=== PATIENT | female | born 1965 | race Caucasian/White ===

== ENCOUNTER 2016-04-11 15:22 | Emergency (ER) | payer OTHER ==
[2016-04-11 16:11] VITALS: BP 127/83
[2016-04-11] MEDS ORDERED: Ketorolac INJ* 60 MG/2 ML VIAL IM ONE (16:25)
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
--- NOTE | 2016-04-11 16:38 | RAD ---
INDICATION: Right wrist injury COMPARISON: None TECHNIQUE: AP, lateral, and oblique views were obtained. FINDINGS: There is no acute fracture or dislocation. There is soft tissue swelling. IMPRESSION: NO ACUTE FRACTURE.
== END 2016-04-11 17:03 | disposition home or self-care (01) ==
LOC: UCCORT 15:22
DX: S60.211A Contusion of right wrist, initial encounter (principal); S63.502A Unspecified sprain of left wrist, initial encounter; W19.XXXA Unspecified fall, initial encounter; Y93.89 Activity, other specified; Y92.159 Unspecified place in reform school as the place of occurrence of the external cause; Y99.0 Civilian activity done for income or pay; Z88.0 Allergy status to penicillin
CPT/HCPCS: 96372; 99213; G0463; J1885

== ENCOUNTER 2017-04-25 01:13 | Emergency (ER) | payer SELFPAY ==
[2017-04-25 03:32] LABS: ABS Basophils 0.1 10^3/ul (0-0.2); ABS Eosinophils 0.1 10^3/ul (0-0.6); ABS Lymphocytes 2.2 10^3/ul (1.0-4.8); ABS Monocytes 0.3 10^3/ul (0-0.8); ABS Neutrophils 2.2 10^3/ul (1.5-7.7); ABS Nucleated RBC 0 10^3/ul; Eosinophil % 1.7 % (0-6); Hematocrit 43 % (35-47); Hemoglobin 14.8 g/dl (12.0-16.0); Lymphocyte % 45.5 % (25-47); Mean Corpuscular HGB Conc 34 g/dl (31-36); Mean Corpuscular Hemoglobin 31 pg (27-31); Mean Corpuscular Volume 91 fL (80-97); Mean Platelet Volume 7 um3 (7.4-10.4); Nucleated Red Blood Cells % 0.1; Platelet Count 303 10^3/ul (150-450); Red Blood Count 4.77 10^6/ul (4.0-5.4); Red Cell Distribution Width 14 % (10.5-15); White Blood Count 4.8 10^3/ul (3.5-10.8)
[2017-04-25 03:42] LABS: Urine Appearance Clear; Urine Blood 1+ (Negative); Urine Color Yellow; Urine Ketones Trace (Negative); Urine Protein Negative (Negative); Urine Urobilinogen Negative (Negative)
[2017-04-25 03:44] LABS: EGFR Non-African American 104.6 (>60)
[2017-04-25 04:54] VITALS: BP 128/67
--- NOTE | 2017-04-30 21:53 | ED ---
Bridgett Ace Rebecca, scribed for Keila Rowe MD on 04/25/17 at 0126 . Substance Abuse/Use - HPI Summary HPI Summary: Pt is a 51 y/o F BIBA who presents to ED due to suspected overdose. Pt reports that she was in [place], had gone to a bar where she had a few drinks, then went to the movie theater with her friend, though she does not remember going to the theater. Pt's sister states that after she was dropped off by her friend at about 2310, she "looked like she was really badly intoxicated" and began vomiting. Pt was complaining of pain, though could not describe a location. Son states that after the pt's sister left, the pt "kept screaming somebody was trying to hurt her," then she had 3 episodes of being unresponsive and without breathing. He successfully gave her CPR after each episode. Upon EMS arrival, she was administered 4 doses of nasal narcan which immediately improved sx. Sister states that this episode was not similar to when she has been previously intoxicated. Pt denies doing any drugs besides alcohol tonight. Pt reports taking 10 mg Oxycodone daily, though she had not taken it today. - History Of Current Complaint Chief Complaint: EDOverdose Stated Complaint: OVERDOSE Time Seen by Provider: 04/25/17 01:19 Hx Obtained From: Patient, Family/Catalytic Case Operator - Son, sister Hx Last Menstrual Period: She does not have them any more. 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 Factor(s): Nothing Alleviating Factor(s): Medication - Nasal Narcan Associated Signs And Symptoms: Vomiting - Allergies/Home Medications Allergies/Adverse Reactions: Allergies Allergy/AdvReac Type Severity Reaction Status Date / Time MS Latex [Latex] Allergy Severe Rash Verified 04/11/16 16:12 MS Penicillins [Penicillins] Allergy Severe Hives Verified 04/11/16 16:12 MS Bee Venom [Bee Venom] Allergy Anaphylatic Verified 04/11/16 16:12 Shock MS Iodine [Iodine] Allergy Hives/mouth Verified 04/11/16 16:12 feels numb seafood Allergy See Comment Uncoded 02/04/16 09:41 PMH/Surg Hx/FS Hx/Imm Hx Endocrine/Hematology History: Denies: Hx Anticoagulant Therapy, Hx Diabetes, Hx Thyroid Disease Cardiovascular History: Denies: Hx Congestive Heart Failure, Hx Deep Vein Thrombosis, Hx Hypertension , Hx Myocardial Infarction, Hx Pacemaker/ICD Respiratory History: Denies: Hx Asthma, Hx Chronic Obstructive Pulmonary Disease (COPD), Hx Lung Cancer, Hx Pneumonia, Hx Pulmonary Embolism GI History: Denies: Hx Gall Bladder Disease, Hx Gastrointestinal Bleed, Hx Ulcer, Hx Urosepsis History: Denies: Hx Kidney Stones, Hx Renal Disease Sensory History: Reports: Hx Contacts or Glasses - CONTACTS, GLASSES Denies: Hx Hearing Aid Opthamlomology History: Reports: Hx Contacts or Glasses - CONTACTS, GLASSES Neurological History: Denies: Hx Dementia, Hx Migraine, Hx Seizures, Hx Transient Ischemic Attacks (TIA) Psychiatric History: Reports: Hx Anxiety, Hx Depression Denies: Hx Panic Disorder, Hx Schizophrenia, Hx Bipolar Disorder - Surgical History Surgery Procedure, Year, and Place: complete hysterectomy, gallblader, hernia, t &a as child ,Rt wrist surgery FOR De Quervains release 10/08. 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 GENERAL: ~Patient is a well-developed and nourished female who is lying comfortable in the stretcher. Patient is not in any acute respiratory distress. HEAD AND FACE: No signs of trauma. No ecchymosis, hematomas or skull depressions. No sinus tenderness. EYES: PERRLA, EOMI x 2, No injected conjunctiva, no nystagmus. EARS: Hearing grossly intact. Ear canals and tympanic membranes are within normal limits. MOUTH: Oropharynx within normal limits. NECK: Supple, trachea is midline, no adenopathy, no JVD, no carotid bruit, no c- spine tenderness, neck with full ROM. CHEST: Symmetric, no tenderness at palpation LUNGS: Clear to auscultation bilaterally. No wheezing or crackles. CVS: Regular rate and rhythm, S1 and S2 present, no murmurs or gallops appreciated. ABDOMEN: Soft, non-tender. No signs of distention. No rebound no guarding, and no masses palpated. Bowel sounds are normal. EXTREMITIES: FROM in all major joints, no edema, no cyanosis or clubbing. NEURO: Alert and oriented x 3. No acute neurological deficits. Speech is normal and follows commands. SKIN: Dry and warm Triage Information Reviewed: Yes Vital Signs On Initial Exam: Initial Vitals Temp Pulse Resp BP Pulse Ox 98.7 F 101 18 129/78 100 04/25/17 01:17 04/25/17 01:17 04/25/17 01:17 04/25/17 01:17 04/25/17 01:17 Vital Signs Reviewed: Yes Diagnostics - Vital Signs Vital Signs Temp Pulse Resp BP Pulse Ox 04/25/17 01:17 98.7 F 101 18 129/78 100 - Laboratory Result Diagrams: 04/25/17 03:15 04/25/17 03:15 Lab Statement: Any lab studies that have been ordered have been reviewed, and results considered in the medical decision making process. - EKG 0359 Cardiac Rate: NL - 88 bpm EKG Rhythm: Sinus Rhythm EKG Interpretation: Normal axis. Normal interval. No ischemic changes. Re-Evaluation - Re-Evaluation First Eval Re-Evaluation Time: 04:30 Change: Improved Comment: Pt is feeling much better. Course/Dx - Course Assessment/Plan: Pt is a 51 y/o F BIBA who presents to ED due to suspected overdose. Pt reports that she was in [place], had gone to a bar where she had a few drinks, then went to the movie theater with her friend, though she does not remember going to the theater. Pt's sister states that after she was dropped off by her friend at about 2310, she "looked like she was really badly intoxicated" and began vomiting. Pt was complaining of pain, though could not describe a location. Son states that after the pt's sister left, the pt "kept screaming somebody was trying to hurt her," then she had 3 episodes of being unresponsive and without breathing. He successfully gave her CPR after each episode. Upon EMS arrival, she was administered 4 doses of nasal narcan which immediately improved sx. Sister states that this episode was not similar to when she has been previously intoxicated. Pt denies doing any drugs besides alcohol tonight. Pt reports taking 10 mg Oxycodone daily, though she had not taken it today. Serum alcohol of 106. UA was done. EKG is sinus rhythm. Pt feels better and will be D/C to home with Dx of alcohol intoxication. She understands and agrees. Allergies noted. - Diagnoses Provider Diagnoses: Alcohol intoxication Discharge - Discharge Plan Condition: Stable Disposition: HOME Patient Education Materials: Alcohol Intoxication (ED) Referrals: PIYUSH Bunch [Primary Care Provider] - 3 Days Additional Instructions: RETURN TO THE EMERGENCY DEPARTMENT FOR ANY RETURNING OR WORSENING SYMPTOMS. The documentation as recorded by the Bridgett hanson Rebecca accurately reflects the service I personally performed and the decisions made by me, Keila Rowe MD.
== END 2017-04-25 04:54 | disposition home or self-care (01) ==
LOC: ED 01:13
DX: F10.129 Alcohol abuse with intoxication, unspecified (principal); R11.10 Vomiting, unspecified; Y90.5 Blood alcohol level of 100-119 mg/100 ml
CPT/HCPCS: 36415; 80053; 80307; 80320; 80329; 81003; 81015; 84443; 85025; 93005; 99283; G0480

== ENCOUNTER 2018-01-05 10:38 | Emergency (ER) | payer BC, OTHER ==
[2018-01-05 11:16] VITALS: BP 135/76
--- NOTE | 2018-01-05 11:18 | UC ---
General HPI - HPI Summary HPI Summary: Pt presents with intermittent episodes of dizziness when turns head, wakes in the morning. Episodes brief No nausea. Pt with nasal congestion and PND + facial pressure. no gardner, vision changes. No fever, chills, rash. Pt with ear pressure R>L last week, improved. Pt with sick contact. No cp, abd pain. No OTC meds. House not humidified. Pt's medications reviewed this visit - History of Current Complaint Chief Complaint: UCGeneralIllness Stated Complaint: DIZZINESS,CONGESTION Time Seen by Provider: 01/05/18 11:00 Hx Obtained From: Patient Hx Last Menstrual Period: She does not have them any more. Onset/Duration: Gradual Onset Pain Intensity: 0 - Allergy/Home Medications Allergies/Adverse Reactions: Allergies Allergy/AdvReac Type Severity Reaction Status Date / Time bee venom protein (honey bee) Allergy Severe Anaphylatic Verified 01/05/18 11:03 Shock Penicillins Allergy Severe Hives Verified 01/05/18 11:03 Iodine and Iodide Containing Allergy Unknown HIVES , Verified 01/05/18 11:03 Produc MOUTH FEELS NUMB latex Allergy Unknown Rash Verified 01/05/18 11:03 seafood Allergy See Comment Uncoded 01/05/18 11:03 PMH/Surg Hx/FS Hx/Imm Hx Previously Healthy: Yes Other History Of: Negative For: HIV, Hepatitis B, Hepatitis C, Anticoagulant Therapy - Surgical History Surgical History: Yes Surgery Procedure, Year, and Place: complete hysterectomy, gallblader, hernia, t &a as child ,Rt wrist surgery FOR De Quervains release 10/08. left breast lumpectomy - Family History Known Family History: Positive: Diabetes, Other - Cancer Negative: Cardiac Disease, Hypertension - Social History Lives: With Family Alcohol Use: Occasionally Alcohol Amount: 2-3/week Substance Use Type: None Substance Use Comment - Amount & Last Used: akes oxycodone daily Smoking Status (MU): Never Smoked Tobacco Review of Systems All Other Systems Reviewed And Are Negative: Yes ENT: Positive: Ear Ache, Nasal Discharge, Sinus Congestion, Sinus Pain/ Tenderness Respiratory: Positive: Negative Cardiovascular: Positive: Negative Gastrointestinal: Positive: Negative Neurological: Positive: Negative Physical Exam - Summary Physical Exam Summary: Vital Signs Reviewed: Yes A+Ox3, no distress Eyes: Conjunctiva Clear, KANDIS. EOM intact and full. 3 beat right sided extinguishing nystagmus ENT: Hearing grossly normal fluid, erythema right TM left TM wnl, turbinates inflammed and boggy, mild TTP max sinuses R>L, mmoist, uvula midline, no exudate, no erythema Neck: Positive: Supple Respiratory: Positive: No respiratory distress, No accessory muscle use + CTA throughout no w/r Cardiovascular: RRR nl s1, s2 no m/r CBT <2 sec, no bruits b/l abd soft + BS nt/nd no guarding, no distension Musculoskeletal Exam: ORDAZ x 4 without difficulty Strength Intact, ROM Intact Neurological: Positive: Alert, + sensation throughout Psychological: Positive: Normal Response To Family Skin: Positive: no rash, no ecchymosis Triage Information Reviewed: Yes Vital Signs: Initial Vital Signs Temp 99 F 01/05/18 11:04 Pulse 89 01/05/18 11:04 Resp 17 01/05/18 11:04 BP 135/76 01/05/18 11:04 Pulse Ox 100 01/05/18 11:04 Course/Dx - Course Course Of Treatment: Pt presetns with head congsetion, ear pain and brief, self limeted epsidoes of dizziness. On exam pt with extinguishing nystagmus, congestion and right OM. Will rx abx,. hydrated. decongestant. flonase. secretion precaution. Pt indicated yeast infections with abx - will Rx diflucan. return precautions. pt comfortable and in agreement with plan - Differential Dx - Multi-Symptom Provider Diagnoses: right OM. sinusitis Discharge - Sign-Out/Discharge Documenting (check all that apply): Patient Departure All imaging exams completed and their final reports reviewed: No Studies - Discharge Plan Condition: Stable Disposition: HOME Prescriptions: Azithromycin TAB* [Zithromax TAB (Z-MICA) 250 mg #6 tabs] 2 tab PO .TODAY, THEN 1 DAILY #1 mica Fluconazole [Diflucan 150 MG (NF)] 150 mg PO ONCE PRN #1 tab PRN Reason: vaginal yeast infection Fluticasone NASAL SPRAY 50MCG* [Flonase NASAL SPRAY 50MCG*] 2 spray BOTH NARES DAILY #1 btl Patient Education Materials: Sinusitis (ED), Ear Infection (ED) Forms: *Work Release Referrals: No Primary Care Phys,NOPCP [Primary Care Provider] - [facility] [place] [facility]ERR[facility] [Outside] Additional Instructions: - - Stay well hydrated. Drink plenty of non-alcoholic, non-caffinated beverages. - Alternate ibuprofen (Advil, Motrin) 600mg and Tylenol every 3 hours for pain or fever. Take with food. Do NOT take for more than 4-5 days. - These infections are spread by secretions - do NOT share eating or drinking utensils - clean items you share with other people such as cell phones, computer mouse, TV remote, computer tablets,etc. Once you have been antibiotics for 2 days, change your toothbrush and your pillowcase. - get plenty of restful sleep - humidify the air in the room where you sleep - boil water, run a hot steam shower, vaporizer, cups of water by heat register - okay to take over the counter decongestant and cough medication - use nasal spray as prescribed - you have been given the treatment for vaginal yeast infection -okay to use if you develop a yeast infection from antibiotics - contact your doctor or return with questions or concerns - Billing Disposition and Condition Condition: STABLE Disposition: Home
== END 2018-01-05 11:43 | disposition home or self-care (01) ==
LOC: UCCORT 10:38
DX: R42 Dizziness and giddiness (principal); R09.81 Nasal congestion; Z91.030 Bee allergy status; Z91.040 Latex allergy status; Z91.013 Allergy to seafood; Z88.0 Allergy status to penicillin; Z88.8 Allergy status to other drugs, medicaments and biological substances
CPT/HCPCS: 99212; G0463

== ENCOUNTER 2018-10-29 14:02 | Emergency (ER) | payer BC, OTHER ==
[2018-10-29 14:54] VITALS: BP 124/79
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
[2018-10-29] MEDS ORDERED: Lidocaine 1% MPF ** 5 ML VIAL IM ONE (15:26)
[2018-10-29] MEDS ORDERED: cefTRIAXone VIAL(*) 250 MG VIAL IM ONE (15:26)
[2018-10-29] MEDS ORDERED: Azithromycin TAB* 250 MG PO ONE (15:29)
[2018-10-30 12:18] LABS: HIV 4th Generation Nonreactive (Nonreactive)
--- NOTE | 2018-10-31 07:27 | UC ---
- Progress Note Progress Note: please call the pt. with the vaginal culture results + Trichomonas negative Gardnerella , negative Karis will call in Flagyl 500 mg 4 tabs po x 1 dose may stop flagyl vaginal cream / gel Course/Dx - Diagnoses Provider Diagnoses: Vaginitis, UTI (urinary tract infection), Risk for sexually transmitted disease Discharge ED - Sign-Out/Discharge Documenting (check all that apply): Patient Departure All imaging exams completed and their final reports reviewed: No Studies - Discharge Plan Condition: Stable Disposition: HOME Prescriptions: Fluconazole 100 MG TAB* [Diflucan 100 MG TAB*] 100 mg PO DAILY #2 tab metroNIDAZOLE [Flagyl 500 MG TAB] 2,000 mg PO ONCE #4 tab metroNIDAZOLE VAGINAL 0.75%* 1 applic VAGINAL BEDTIME 5 Days #5 tube Nitrofurantoin Monohyd/M-Cryst [Macrobid 100 mg Capsule] 100 mg PO Q12H #10 cap Patient Education Materials: Urinary Tract Infection in Women (ED), Vaginitis ( ED) Referrals: Shea Ott MD [Primary Care Provider] - 3 Days - Billing Disposition and Condition Condition: STABLE Disposition: Home
[2018-10-31 13:39] LABS: Chlamydia trachomatis NAA Negative (Negative); Neisseria gonorrhoeae (GC) NAA Negative (Negative)
== END 2018-10-29 16:03 | disposition home or self-care (01) ==
LOC: UCCORT 14:02
DX: A59.01 Trichomonal vulvovaginitis (principal); N39.0 Urinary tract infection, site not specified; Z72.51 High risk heterosexual behavior; Z88.0 Allergy status to penicillin
CPT/HCPCS: 36415; 81003; 87086; 87389; 87480; 87491; 87510; 87591; 87660; 96372; 99213; A9270-GY; G0463; J0696